=== PATIENT | female | born 1960 | race Caucasian/White ===

== ENCOUNTER 2022-06-26 15:33 | Outpatient (CLI) | payer OTHER, SELFPAY ==
[2022-06-26 17:20] LABS: Chloride* 105 mmol/L (96-114); Potassium* 4.5 mmol/L (3.6-5.1); Sodium* 140 mmol/L (135-149)
[2022-06-26 17:22] LABS: Creatinine* 0.9 mg/dL (0.5-1.5); Estimated Glomerular Filt Rate 73 ml/min
[2022-06-26 17:23] LABS: Blood Urea Nitrogen* 20 mg/dL (7-30); Calcium* 9.5 mg/dL (8.4-10.6); Carbon Dioxide* 29 mmol/L (20-32); Glucose* 102 mg/dL (60-115)
== END 2022-06-26 15:34 | disposition home or self-care (01) ==
LOC: NFLDREF 15:35
PROVIDERS: PCP Internal Medicine; Visit Provider Internal Medicine
DX: I10 Essential (primary) hypertension (principal)
CPT/HCPCS: 80048

== ENCOUNTER 2022-08-28 13:52 | Outpatient (CLI) | payer OTHER, SELFPAY ==
--- NOTE | 2022-08-28 14:00 | CRLHL7_ITS ---
For Patients: As a result of the Cures Act, medical imaging exams and procedure reports are released immediately into your electronic medical record. You may view this report before your referring provider. If you have questions, please contact your health care provider. BILATERAL SCREENING MAMMOGRAM WITH COMPUTER-AIDED DETECTION AND TOMOSYNTHESIS TECHNIQUE: CC and MLO views were obtained. These mammographic images have been obtained using full-field digital technique. These mammographic images were interpreted with the benefit of computer-aided detection. Breast Tomosynthesis was used in this interpretation. COMPARISON FILM: 03/04/21, 02/20/20, 01/15/19. FINDINGS: There are scattered areas of fibroglandular density IMPRESSION: There is no radiographic evidence for malignancy. ASSESSMENT: BI-RADS Category 1: Negative RECOMMENDATION: Routine screening mammogram in 1 year. A lay language report of this examination will be provided to the patient. Liya Young M.D. Diagnostic/Breast Radiologist [email or web address] [email or web address]/leena Transcribed: 12:09 p.[email or web address] stern/Dictated by: Liya Young MD @ 08/29/2022 8:55:00 AM (Electronically Signed)
== END 2022-08-28 13:53 | disposition home or self-care (01) ==
LOC: MAMMO 13:52
PROVIDERS: PCP Internal Medicine; Visit Provider Internal Medicine
DX: Z12.31 Encounter for screening mammogram for malignant neoplasm of breast (principal)
CPT/HCPCS: 77063; 77067

== ENCOUNTER 2023-09-05 07:59 | Outpatient (CLI) | payer OTHER, SELFPAY ==
--- NOTE | 2023-09-05 08:15 | MM_ITS ---
Patient: GERALDO ANGELES Facility:?[facility] Patient ID:?[id number] Site Patient ID:?[id number] Site :?1960 Study:?XRay-Breast Bilateral 3D W/CAD-09/05/2023 8:28:53 AM Ordering Physician:Gracia Peters Final Report: BILATERAL SCREENING MAMMOGRAM WITH COMPUTER-AIDED DETECTION AND TOMOSYNTHESIS TECHNIQUE: CC and MLO views were obtained. These mammographic images have been obtained using full-field digital technique. These mammographic images were interpreted with the benefit of computer-aided detection. Breast Tomosynthesis was used in this interpretation. COMPARISON FILM: 08/28/22, 03/04/21, 02/20/20. FINDINGS: There are scattered areas of fibroglandular density. IMPRESSION: There is no radiographic evidence for malignancy. ASSESSMENT: BI-RADS Category 1: Negative RECOMMENDATION: Routine screening mammogram in 1 year. A lay language report of this examination will be provided to the patient. Sterling Traylor M.D. Diagnostic Radiologist [email or web address] DSM/sp R& Transcribed: 1:48 p.m. SP/Dictated by: Sterling Traylor MD @ 09/05/2023 9:40:00 AM Signed by:Lenny Traylor MD @09/05/2023 3:07:22 PM (Electronic Signature)
== END 2023-09-05 08:00 | disposition home or self-care (01) ==
LOC: MAMMO 08:01
PROVIDERS: PCP Internal Medicine; Visit Provider Internal Medicine
DX: Z12.31 Encounter for screening mammogram for malignant neoplasm of breast (principal)
CPT/HCPCS: 77063; 77067

== ENCOUNTER 2023-11-05 13:44 | Outpatient (CLI) | payer OTHER, SELFPAY ==
--- OUTSIDE RECORDS SUMMARY | 2023-11-05 14:07 | XMS_ITS | Data Portability ---
Author Organization [facility], [employer] Address [address] [place] [address] Assessment Encounter Date Assessment Date Assessment LastModified by Organization Details LastModified Time 06/19/2022 06/19/2022 Patient presents for evaluation of a fracture to the left 5th toe proximal phalanx. Based on history, physical exam, and any relevant prior diagnostic tests/treatmen ts, I recommend umer splint, supportive but comfortable shoes. Discussed treatment plan and orders with patient as indicated below. Not available 06/19/2022 10:40:43 Plan of Treatment Reminders Order Date Submit Date Provider Last Modified By Organization Details Last Modified Time Details Appointments None record ed. Lab None record ed. Referral None record ed. Procedures None record ed. Surgeries None record ed. Imaging XR, foot, 3 or more view 023 06/19/19 [facility], [address] [place] [address], [phone], 05:01:10 Medication Orders None record ed. Patient TargetsNo targets recorded. Patient InstructionsNo instructions recorded. Reason for Referral None Reported. Results Created Date Observation Date Name Description Value Unit Range Abnormal Flag LastModifiedBy Organization Detail LastModifiedTime 06/19/19 23 XR, foot, 3 or more view No observ ation record ed. [facility] [address] [place] [address], [phone], 06/19/2022 10:42:30 Result Notes None recorded. Problems Name Status Onset Date Resolution Date Notes Provider Name and Address Organization Details Recorded Time Hypertensive disorder Active 023 Juvenal Highum null, [place] - [facility] 3 10:35:43 Anxiety disorder Active 023 Juvenal issa, [place] - [facility] 3 10:35:50 Hypothyroidism Active 023 Juvenal issa, [place] - [facility] 3 10:36:00 Stress fracture of foot Active 021 Stress fracture of foot; Original Code: [id number] Original Codesystem: SNOMED CT Classifi cation: Medical Con firmation Status: Confirmed Not Available [facility] 3 09:04:04 Traumatic injury of common peroneal nerve Active 020 Traumatic injury of common peroneal nerve; Original Code: [id number] O riginal Codesystem: SNOMED CT Classifi cation: Medical Con firmation Status: Confirmed Not Available [facility] 3 09:04:04 Foot-drop Active 020 Foot-drop; Original Code: [id number] Or iginal Codesystem: SNOMED CT Classifi cation: Medical Con firmation Status: Confirmed Not Available [facility] 3 09:04:04 Problem Notes None recorded. Procedures Surgical History None recorded. Imaging Results Imaging Date Name Status LastModified by Organiz ation Details LastModified Time 06/19/2022 XR, foot, 3 or more view active [facility] [address], [place], [address], 06/19/2022 10:42:30 Procedure Notes None recorded. Medical Equipment None Reported. Medications Name Sig Start Date Stop Date Status Note LastModified by Organization Details LastModified Time levothyroxine 50 mcg tablet TAKE 1 TABLET BY MOUTH EVERY DAY active Not Available Not Available No t Available buspirone 10 mg tablet TAKE 1 TABLET BY MOUTH TWICE DAILY active Not Available Not Available No t Available hydrochlorothia zide 12.5 mg capsule TAKE 1 CAPSULE BY MOUTH 1 TIME active Not Available Not Available No t Available nitrofurantoin monohydrate/mac rocrystals 100 mg capsule TAKE 1 CAPSULE BY MOUTH EVERY 12 HOURS FOR 5 DAYS active Not Available Not Available No t Available Vitals None Recorded Social History Question Answer Notes LastModified by Organizat ion Details LastModified Time Tobacco Smoking Status Never Smoker Juvenal [facility] 06/19/2022 10:36:29 What Is Your Level Of Alcohol Consumption? Occasional Information not available 06/19/2022 Do You Use Any Illicit Or Recreational Drugs? No Information not available 06/19/2022 Sex: Female Functional Status None recorded. Mental Status None recorded. Family History Nothing Reported. Medical History No medical history recorded. Gynecological HistoryNo gynecological history recorded. Obstetrics History GPAL:G 0 P 0 0 0 0 Past Encounters Encounter ID Performer Location Encounter Start Date Encounter Closed Date Diagnosis/Indication Diagnosis SNOMED-CT Code [id number] Juvenal Duartegaudencio [facility] [address] [place] [address] 06/19/2022 10:11:30 06/19/2022 12:25:41 Closed fracture of proximal phalanx of lesser toe of left foot [id number] 100 Health Concerns Section Related Observation LastModified by Organization Detai ls LastModified Time None Recorded Concern Status LastModified by Organization Details LastModified Time None Recorded Advance Directives Directive None Recorded Payers Encounter Date Sequence Insurance Name Policy Number Policy Pathak Covered Member ID Pathak Member ID Guarantor Name 06/19/2022 1 [facility] Santiago Sequeira [id number] Myranda Sequeira Notes Date Note Type Note Provider Name and Address Organization Details Recorded Time 06/19/2022 text/html HPI Notes: This established patient ptc for evaluation of a left toe injury she sustained when she accidentally stubbed it on a chair while walking barefoot last evening in her home while barefoot. She felt it crack and it was deviated laterally when she looked down. She did pop it back into place and taped it to the 4th toe. 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 Juvenal [facility] - [facility] 06/19/2022 10:44:17 OBGyn Episode No OBEpisode recorded.
== END 2023-11-05 13:45 | disposition home or self-care (01) ==
PROVIDERS: PCP Internal Medicine; Visit Provider Internal Medicine
DX: E78.5 Hyperlipidemia, unspecified (principal); E03.9 Hypothyroidism, unspecified; I10 Essential (primary) hypertension
CPT/HCPCS: 80048; 80061; 84443

== ENCOUNTER 2024-09-24 13:11 | Outpatient (CLI) | payer OTHER, SELFPAY ==
--- NOTE | 2024-09-24 13:20 | CRLHL7_ITS ---
For Patients: As a result of the Century Cures Act, medical imaging exams and procedure reports are released immediately into your electronic medical record. You may view this report before your referring provider. If you have questions, please contact your health care provider. INDICATION: BILATERAL SCREENING MAMMOGRAM, ASYMPTOMATIC 64 Y/O FEMALE COMPARISON: 09/05/23, 08/28/22, 03/04/21 TECHNIQUE: CC and MLO views were obtained. These mammographic images have been obtained using full-field digital technique. These mammographic images were interpreted with the benefit of computer aided detection and tomosynthesis. BREAST COMPOSITION: There are scattered areas of fibroglandular density. FINDINGS: No suspicious findings. ASSESSMENT: BI-RADS 2 Benign RECOMMENDATION: Annual screening mammogram. A lay language report of this examination will be provided to the patient. Dictated by: Sterling Traylor MD @ 09/25/2024 12:34:21 (Electronically Signed)
== END 2024-09-24 13:12 | disposition home or self-care (01) ==
PROVIDERS: PCP Internal Medicine; Visit Provider Internal Medicine
DX: Z12.31 Encounter for screening mammogram for malignant neoplasm of breast (principal)
CPT/HCPCS: 77063; 77067

== ENCOUNTER 2024-11-03 08:08 | Outpatient (CLI) | payer OTHER, SELFPAY | END 2024-11-03 08:09 | disposition home or self-care (01) | LOC: NFLDREF 19:04 | PROVIDERS: PCP Internal Medicine; Referring Provider Internal Medicine; Visit Provider Internal Medicine | DX: E78.5 Hyperlipidemia, unspecified (principal); I10 Essential (primary) hypertension; E03.9 Hypothyroidism, unspecified | CPT/HCPCS: 80048; 80061; 84443 ==